=== PATIENT | male | born 1980 | race Caucasian/White ===

== ENCOUNTER 2023-01-06 01:41 | Emergency (ER) | payer MEDICARE, MEDICAID, SELFPAY ==
[2023-01-06 01:45] VITALS: BP 120/87; PULSE 94; RESP 14; TEMP 37.1; O2SAT 96; BMI 23.5
[2023-01-06 01:47] VITALS: BP 120/87; PULSE 101; PULSE 92; PULSE 97; PULSE 98; PULSE 99; RESP 16; RESP 17; O2SAT 94; O2SAT 95; O2SAT 97
--- NOTE | 2023-01-06 02:03 | PC.NURSE ---
patient arrives with mom from home. pts mom states she is patients primary point of care specialist, states his baseline is non ambulatory and stand pivot from wheelchair into bed. mom states tonight patient has not been acting like himself and has had several episodes of dizziness and falling over . mom states the patient normally crawls around at home and takes himself to the bathroom but mom states tonight patient has been trying to crawl and seems too weak and will fall over while trying to crawl which is not normal. patient states he doesnt feel good and also told his mom and this RN he feels nauseous. mom states patient spent yesterday at [place] and she thinks maybe he did not drink enough fluids while there and got dehydrated. pt states at [place] [facility] he had water, slushy, corn dog . this RN asked patient if he felt naseous after eating or while at [place] and he shook his head no.
--- NOTE | 2023-01-06 02:09 | ED_ITS ---
HPI - Weakness General Chief complaint: Weakness Stated complaint: general weakness, DEHYDRATION Time Seen by Provider: 01/06/23 02:00 Source: patient and family Mode of arrival: Wheelchair History of Present Illness HPI Narrative: patient has underlying congenital neurologic illness . He is not able to walk and uses wheel chair. he does crawl around the home as his means of mobility also. Went to [place] yesterday. Came home around 8pm. Family feels he has not been right. He has been off balance. States he was sitting on the commode and fell over because he was off balance. No injury. He became nauseated and family brought him in. He is complaining of a headache and points to his forehead. No fever , abdominal pain. Nausea has improved. States feels dizzy/off balance. Worse when he is sitting up. history of unspecified leukodystrophy Related Data Home Medications Medication Instructions Recorded Confirmed amoxicillin 500 mg capsule 500 mg PO DAILY 01/06/23 01/06/23 citalopram 40 mg tablet 40 mg PO DAILY 01/06/23 01/06/23 docusate sodium 50 mg capsule 50 mg PO BID 01/06/23 01/06/23 (Stool Softener) multivitamin (Daily Multi-Vitamin 1 tab PO DAILY 01/06/23 01/06/23 tablet) omeprazole 20 mg capsule,delayed 20 mg PO DAILY 01/06/23 01/06/23 release phenobarbital 32.4 mg tablet 32.4 mg PO BID 01/06/23 01/06/23 rosuvastatin 20 mg tablet 20 mg PO DAILY 01/06/23 01/06/23 Allergies Allergy/AdvReac Type Severity Reaction Status Date / Time azithromycin Allergy Unknown Verified 01/06/23 01:51 [From Zithromax Z-Devon] ciprofloxacin [From Cipro] Allergy Unknown Verified 01/06/23 01:51 Review of Systems ROS Status of ROS 10 or more systems reviewed and unremarkable except as noted in history and below Exam Constitutional Vital Signs - 24 hr 01/06/23 01:45 Temperature 98.7 F Pulse Rate [Monitor] 94 H Respiratory Rate 14 Blood Pressure [Right Arm] 120/87 H Pulse Oximetry 96 Oxygen Delivery Method Room Air Common normals: no apparent distress and alert HENRI Common normals: normocephalic Eye Common normals: PERRL (no nystagumus) and conjunctivae normal Chest Common normals: inspection of chest normal and palpation of chest normal Respiratory Common normals: normal respiratory effort, no retractions, no use of accessory muscles and clear to auscultation bilaterally Cardio Common normals: regular rate, regular rhythm, S1 normal heart sound and S2 normal heart sound GI Common normals: Normal to inspection, nondistended, normoactive bowel sounds present and non-tender Extremity Other: lower extremity deformity. Neuro Common normals: oriented x3 Psych Appearance: grossly normal Course Vital Signs Vital signs: Vital Signs Temperature 98.7 F 01/06/23 01:45 Pulse Rate 94 H 01/06/23 01:45 Respiratory Rate 14 01/06/23 01:45 Blood Pressure 120/87 H 01/06/23 01:45 Pulse Oximetry 96 01/06/23 01:45 Oxygen Delivery Method Room Air 01/06/23 01:45 Temperature 98.7 F 01/06/23 01:45 Pulse Rate 94 H 01/06/23 01:45 Respiratory Rate 14 01/06/23 01:45 Blood Pressure 120/87 H 01/06/23 01:45 Pulse Oximetry 96 01/06/23 01:45 Oxygen Delivery Method Room Air 01/06/23 01:45 MDM - Weakness MDM Narrative Medical decision making narrative: patient presents with dizziness. History of unspecified Leukodystrophy. dizziness associated with nausea. He is normally able to ambulate around the [facility] by crawling. Now not able to do so because of dizziness. Complains of headache as well. Labs unremarkable . CT brain no mass effect. No intracranial hemorrhage. No findings suggesting acute stroke. There is diffuse hypoattenuation noted involving the supratentorial white matter within the bilateral cerebral hemispheres. Patient was given dose of Antivert which has not help. Mother informed of the plan to hospitalize to continue his workup. Family requesting transfer to [facility] Lab Data Labs: Lab Results 01/06/23 01/06/23 01/06/23 Range/Units 01:55 03:50 04:02 WBC 8.3 (4.0-11.0) 10^3/uL RBC 4.96 (4.70-6.10) 10^6/uL Hgb 14.5 (14.0-18.0) g/dL Hct 42.0 (42.0-54.0) % MCV 84.7 (80.0-94.0) fL MCH 29.2 (25.9-34.0) pg MCHC 34.5 (29.9-35.2) g/dL RDW 12.1 (11.0-15.0) % Plt Count 249 (150-450) 10^3/uL MPV 8.9 L (9.5-13.5) fL Neut % (Auto) 60.5 (43.0-75.0) % Lymph % (Auto) 27.9 (20.5-60.0) % [place] % (Auto) 8.5 (1.7-12.0) % Eos % (Auto) 2.3 (0.9-7.0) % Baso % (Auto) 0.6 (0.2-2.0) % Neut # (Auto) 5.0 (1.4-6.5) 10^3/uL Lymph # (Auto) 2.3 (1.2-3.8) 10^3/uL [place] # (Auto) 0.7 (0.3-0.8) 10^3/uL Eos # (Auto) 0.2 (0.0-0.7) 10^3/uL Baso # (Auto) 0.1 (0.0-0.1) 10^3/uL Abs Immat Gran (auto) 0.02 (0.00-0.03) 10^3/uL Imm/Tot Granulo (auto) 0.2 (0.0-0.5) % Sodium 136 (136-145) mmol/L Potassium 3.7 (3.5-5.1) mmol/L Chloride 101 (98-107) mmol/L Carbon Dioxide 28.2 (21.0-32.0) mmol/L Anion Gap 10.5 BUN 13.0 (7.0-18.0) mg/dL Creatinine 0.91 (0.70-1.30) mg/dL Est GFR ( Amer) >60 (>=60) Est GFR (Non-Af Amer) >60 (>=60) BUN/Creatinine Ratio 14.3 Glucose 104 (74-106) mg/dL Calcium 9.0 (8.5-10.1) mg/dL Total Bilirubin 0.3 (0.2-1.0) mg/dL AST 22 (15-37) U/L ALT 33 (16-63) U/L Alkaline Phosphatase 130 H (46-116) U/L Total Protein 7.2 (6.4-8.2) g/dL Albumin 3.8 (3.4-5.0) g/dL Globulin 3.4 g/dL Albumin/Globulin Ratio 1.1 Urine Color Yellow (YELLOW) Urine Clarity Clear (CLEAR) Urine pH 7.0 (5.0-9.0) Ur Specific [place] 1.015 (1.005-1.025) Urine Protein Negative (NEG/TRACE) mg/dL Urine Glucose (UA) Negative (NEGATIVE) mg/dL Urine Ketones Negative (NEGATIVE) mg/dL Urine Occult Blood Moderate A (NEGATIVE) Urine Nitrite Negative (NEGATIVE) Urine Bilirubin Negative (NEGATIVE) Urine Urobilinogen 0.2 (0.2-1.0) EU/dL Ur Leukocyte Esterase Negative (NEGATIVE) Urine RBC 0-2 (0-2) #/HPF Urine WBC 0-2 A (NONE SEEN) #/HPF Ur Squamous Epith Cells Rare (NONE/RARE) #/LPF Urine Crystals None seen (None Seen) #/HPF Urine Bacteria None seen (NONE SEEN) #/HPF Urine Casts None seen (NONE SEEN) #/LPF Urine Mucus None seen (NONE SEEN) Ur Culture Indicated? No Discharge Plan Discharge Chief Complaint: Weakness Clinical Impression: Dizziness Patient Disposition: [facility] Discharge Location: [facility] Mode of Transportation: EMS
--- NOTE | 2023-01-06 02:18 | XR_ITS ---
The [address] [address] Patient Name: ALFRED REYNOLDS MRN: [id number] date: 1980 Sex: M Assigned Patient Location: ED.MAIN Current Patient Location: ER Accession/Order Number: [id number] Exam Date: 01/06/2023 02:30 Report Date: 01/06/2023 04:22 At the request of: KEISHA WHITING Procedure: XR chest 1V EXAM: XR chest 1V 01/06/2023 2:30 AM EDT OH001 CLINICAL STATEMENT: weakness COMPARISON: No prior studies are available at the time of dictation. TECHNIQUE: Single AP radiograph of the chest is submitted. FINDINGS: There is no acute airspace disease. The cardiac silhouette is normal. The costophrenic recesses are sharp. No pneumothorax. The bony elements are unremarkable. IMPRESSION: No acute cardiopulmonary process. Electronically authenticated by: DARIN SIN Date: 01/06/2023 04:22
--- NOTE | 2023-01-06 02:20 | CT_ITS ---
The [address] [address] Patient Name: ALFRED REYNOLDS MRN: [id number] date: 1980 Sex: M Assigned Patient Location: ED.MAIN Current Patient Location: Accession/Order Number: [id number] Exam Date: 01/06/2023 02:30 Report Date: 01/06/2023 04:22 At the request of: KEISHA WHITING Procedure: CT head/brain wo con EXAM: CT head/brain wo con CLINICAL INDICATION: dizziness COMPARISON: None TECHNIQUE: Axial CT images of the brain were obtained without contrast. Dose reduction techniques were achieved by using automated exposure control and/or adjustment of mA and/or kV according to patient size and/or use of iterative reconstruction technique. FINDINGS: Brain parenchyma: No mass effect or midline shift is seen. Encarnacion-white differentiation is maintained. No findings suspicious for intracranial hemorrhage. No findings suggesting acute stroke. There is diffuse hypoattenuation noted involving the supratentorial white matter within the bilateral cerebral hemispheres. Ventricles and extra-axial spaces: Ventricles are concordant with sulci. No findings suggesting hydrocephalus. Visualized paranasal sinuses: No findings suggesting acute sinusitis. Mastoid air cells: Clear. Included portions of the orbits:Included portions of the orbits with no evidence of fracture or other acute pathology. Bones: No fracture is seen. Impression: 1. No acute hemorrhage or acute territorial infarct. 2. There is nonspecific diffuse symmetric hypoattenuation involving the white matter of the supratentorial brain with involvement of the bilateral frontal, parietal, temporal and to a lesser degree the occipital lobes, MRI of the brain may be done to better evaluate. Electronically authenticated by: MADYSON HEMPHILL Date: 01/06/2023 04:22
[2023-01-06 02:27] LABS: Basophils Absolute Auto 0.1 10^3/uL (0.0-0.1); Basophils Percent Auto 0.6 % (0.2-2.0); Eosinophils Absolute Auto 0.2 10^3/uL (0.0-0.7); Eosinophils Percent Auto 2.3 % (0.9-7.0); Hemoglobin 14.5 g/dL (14.0-18.0); Immature Granulocytes Abs Auto 0.02 10^3/uL (0.00-0.03); Immature Granulocytes Pct Auto 0.2 % (0.0-0.5); Lymphocytes Absolute Auto 2.3 10^3/uL (1.2-3.8); Lymphocytes Percent Auto 27.9 % (20.5-60.0); Mean Corpuscular HGB Conc 34.5 g/dL (29.9-35.2); Mean Corpuscular Hemoglobin 29.2 pg (25.9-34.0); Mean Corpuscular Volume 84.7 fL (80.0-94.0); Mean Platelet Volume 8.9 fL (9.5-13.5); Monocytes Absolute Auto 0.7 10^3/uL (0.3-0.8); Monocytes Percent Auto 8.5 % (1.7-12.0); Neutrophils Percent Auto 60.5 % (43.0-75.0); Platelet Count 249 10^3/uL (150-450); Red Blood Count 4.96 10^6/uL (4.70-6.10); Red Cell Distribution Width 12.1 % (11.0-15.0); White Blood Count 8.3 10^3/uL (4.0-11.0)
[2023-01-06 02:45] LABS: Alanine Aminotransferase 33 U/L (16-63); Albumin Globulin Ratio 1.1; Albumin Level 3.8 g/dL (3.4-5.0); Alkaline Phosphatase 130 U/L (46-116); Anion Gap 10.5; Aspartate Amino Transferase 22 U/L (15-37); BUN Creatinine Ratio 14.3; Bilirubin Total 0.3 mg/dL (0.2-1.0); Carbon Dioxide 28.2 mmol/L (21.0-32.0); Chloride 101 mmol/L (98-107); Estimated GFR (African America >60 (>=60); Estimated GFR (Non-African Ame >60 (>=60); Globulin 3.4 g/dL; Glucose 104 mg/dL (74-106); Potassium 3.7 mmol/L (3.5-5.1); Sodium 136 mmol/L (136-145); Total Protein 7.2 g/dL (6.4-8.2)
[2023-01-06] MEDS: MECLIZINE HCL 12.5 MG TABLET 25 MG PO (03:01)
[2023-01-06] MEDS: ONDANSETRON PF 4 MG/2 ML VIAL IV (03:01)
--- NOTE | 2023-01-06 03:10 | PC.NURSE ---
When this nurse went to medicate pt, pt was alert and oriented and responding at this baseline to this nurse Pt's eyes are red and blood shot bilaterally Pt's mother states this is not normal pt states his only pain is in the front of his head Pt given a warm blanket and denies further needs at this time
[2023-01-06 03:59] LABS: Bilirubin Urine NEGATIVE (NEGATIVE); Blood Urine MODERATE (NEGATIVE); Clarity Urine CLEAR (CLEAR); Color Urine YELLOW (YELLOW); Glucose Urine UA NEGATIVE (NEGATIVE); Ketones Urine NEGATIVE (NEGATIVE); Leukocyte Esterase Urine NEGATIVE (NEGATIVE); Nitrite Urine NEGATIVE (NEGATIVE); Protein Urine NEGATIVE (NEG/TRACE); Specific Gravity Urine 1.015 (1.005-1.025); Urobilinogen Urine 0.2 EU/dL (0.2-1.0)
[2023-01-06 04:02] LABS: Urine Microscopic Indicated YES
[2023-01-06 04:06] LABS: Bacteria Urine NONE SEEN #/HPF (NONE SEEN); Cast Seen? NONE SEEN #/LPF (NONE SEEN); Crystals Seen? None Seen #/HPF (None Seen); Mucus Urine NONE SEEN (NONE SEEN); RBC Urine 0-2 #/HPF (0-2); Squamous Epithelial Cell Urine RARE #/LPF (NONE/RARE); Urine Culture Indicated NO; WBC Urine 0-2 #/HPF (NONE SEEN)
--- NOTE | 2023-01-06 05:02 | ECG_ITS ---
The [facility] Test Date: 2023-01-06 Pat Name: Tyrell Hawthorne Department: Room: - Gender: Male Live In Housekeeper: : 1980 Requested By: DAVID BA Order Number: [id number] Reading MD: DAVID BA Measurements Intervals [place] Rate: 90 P: 41 CT: 148 QRS: 84 QRSD: 88 T: 59 QT: 378 QTc: 426 Interpretive Statements 1100 Sinus rhythm Non-Specific T wave inversion in aVL 9110 normal ECG No previous ECG available for comparison Electronically Signed On 01-06-2023 5:41:31 EDT by DAVID BA
[2023-01-06 08:28] VITALS: BP 129/92; PULSE 105; RESP 22; O2SAT 96
[2023-01-06 08:30] VITALS: BP 125/89; PULSE 99; RESP 11; O2SAT 91
[2023-01-06 09:08] VITALS: BP 125/89; PULSE 99; RESP 11; TEMP 37.6; O2SAT 94
== END 2023-01-06 09:10 | disposition short-term general hospital (02) ==
PROVIDERS: Emergency Provider Internal Medicine; PCP Internal Medicine
DX: R42 Dizziness and giddiness (principal); Q07.9 Congenital malformation of nervous system, unspecified; Z79.899 Other long term (current) drug therapy
CPT/HCPCS: 36415; 70450; 71045; 80053; 81003; 81015; 85025; 93005; 96374; 99285

== ENCOUNTER 2023-02-01 15:45 | Outpatient (RCR) | payer MEDICARE, MEDICAID, SELFPAY | END 2023-02-20 15:42 | disposition home or self-care (01) | LOC: PT 15:45 | PROVIDERS: PCP Internal Medicine; Visit Provider Physician Assistant | DX: S16.1XXD Strain of muscle, fascia and tendon at neck level, subsequent encounter (principal); E75.29 Other sphingolipidosis; R26.89 Other abnormalities of gait and mobility; R42 Dizziness and giddiness; M54.2 Cervicalgia | CPT/HCPCS: 95992; 97140; 97162 ==

== ENCOUNTER 2023-04-23 13:57 | Outpatient (OUT) | payer MEDICARE, MEDICAID, SELFPAY ==
[2023-04-23 15:24] LABS: Alanine Aminotransferase 22 U/L (16-63); Albumin Globulin Ratio 1.2; Albumin Level 4.1 g/dL (3.4-5.0); Alkaline Phosphatase 138 U/L (46-116); Anion Gap 10.8; Aspartate Amino Transferase 17 U/L (15-37); BUN Creatinine Ratio 14.9; Bilirubin Total 0.3 mg/dL (0.2-1.0); Calcium 9.1 mg/dL (8.5-10.1); Carbon Dioxide 31.3 mmol/L (21.0-32.0); Chloride 99 mmol/L (98-107); Estimated GFR (African America >60 (>=60); Estimated GFR (Non-African Ame >60 (>=60); Globulin 3.4 g/dL; Glucose 97 mg/dL (74-106); Potassium 4.1 mmol/L (3.5-5.1); Sodium 137 mmol/L (136-145); Total Protein 7.5 g/dL (6.4-8.2)
[2023-04-24 05:07] LABS: Phenobarbital, Serum 10 ug/mL (15-40)
== END 2023-04-23 13:58 | disposition home or self-care (01) ==
LOC: LAB 14:00
PROVIDERS: PCP Internal Medicine
DX: Z51.81 Encounter for therapeutic drug level monitoring (principal)
CPT/HCPCS: 36415; 80053; 80184

== ENCOUNTER 2023-06-25 12:05 | Outpatient (OUT) | payer MEDICARE, MEDICAID, SELFPAY ==
[2023-06-25 12:42] LABS: Alanine Aminotransferase 25 U/L (16-63); Albumin Globulin Ratio 1.2; Albumin Level 3.9 g/dL (3.4-5.0); Alkaline Phosphatase 51 U/L (46-116); Aspartate Amino Transferase 14 U/L (15-37); Bilirubin Direct 0.1 mg/dL (0.0-0.2); Bilirubin Total 0.4 mg/dL (0.2-1.0); Globulin 3.3 g/dL; Total Protein 7.2 g/dL (6.4-8.2)
== END 2023-06-25 12:06 | disposition home or self-care (01) ==
LOC: LAB 12:08
PROVIDERS: PCP Internal Medicine; Visit Provider Nurse Practitioner Family
DX: Z51.81 Encounter for therapeutic drug level monitoring (principal)
CPT/HCPCS: 36415; 80076